=== PATIENT | male | born 1975 | race Caucasian/White ===

== ENCOUNTER 2022-05-23 19:01 | Emergency (ER) | payer OTHER, SELFPAY ==
[2022-05-23 19:02] VITALS: BP 149/95; PULSE 80; RESP 17; TEMP 36.4; O2SAT 96; BMI 29.0
--- NOTE | 2022-05-23 19:14 | RAD_ITS ---
STUDY: X-RAY - LEFT HAND, ATTENTION 2 FINGER REASON FOR EXAM: Male, 46 years old. trauma TECHNIQUE: 3 view(s) of the finger were obtained. COMPARISON: None. FINDINGS: Normal metacarpal head. Normal metacarpophalangeal joint. Normal proximal phalanx. Normal middle phalanx. Normal distal phalanx. Normal proximal interphalangeal joint. Deep laceration of the dorsal aspect of the digit at the level of the distal interphalangeal joint with the persistent flexion of the joint worrisome for disruption of the extensor tendon. RAD/Finger(s) Min 2 Views IMPRESSION: 1. No acute fracture or dislocation. 2. Deep laceration of the dorsum of the digit at the level of the distal interphalangeal joint with flexion deformity worrisome for disruption of the extensor tendon. Electronically Signed: Ruddy Amor MD at 19:25 EDT ,
[2022-05-23] MEDS: Diphth,Pertuss(Acell),Tet Vac 0.5 ML Vial IM (19:42)
[2022-05-23] MEDS: Cephalexin 250 MG Capsule 500 MG PO (19:44)
--- NOTE | 2022-05-23 19:44 | EDS_ITS ---
HPI History of Present Illness Chief Complaint: Laceration Informant: patient Narrative Narrative: 46-year-old male sustained laceration to the left index finger today. Unknown last tetanus. He notes that appears to go into the joint and that he cannot move the tip of his finger. He also notes numbness to the tip of the finger. [place]. Tetanus Immunization: Unknown [facility] Home Medications cephalexin 500 mg capsule 500 mg PO Q6 #28 CAPSULES 05/23/22 [Rx Last Taken Unknown] Allergy/AdvReac Type Severity Reaction Status Date / Time amoxicillin Allergy Chest Verified 05/23/22 19:04 tightness Social History Smoking Status: Never smoker ROS ROS ED Constitutional Constitutional ED: Denies chills or weight loss Eyes Eyes: Denies change in vision or diplopia ENT ENT ED: Denies ear pain, rhinorrhea or sore throat Cardiovascular Cardiovascular: Denies chest pain, orthopnea, palpitations or racing heartbeat Respiratory/Chest Respiratory/Chest: Denies cough, dyspnea or orthopnea Gastrointestinal Gastrointestinal: Denies abdominal pain, diarrhea, nausea or vomiting Genitourinary Genitourinary ED: Denies dysuria, hematuria or urinary frequency Musculoskeletal Musculoskeletal: Reports other Details: See history of present illness ; Denies arthralgias or myalgias Integumentary Denies abscess or rash Neurologic Neurologic: Denies headache(s) or weakness Psychiatric Psychiatric: Denies anxiety, depression, suicidal ideation or suicidal thoughts Endocrine Endocrinology: Denies polydipsia, polyphagia or polyuria Allergic/Immunologic Allergic/Immunologic ED: Denies mouth swelling, tongue swelling or urticaria EXAM Physical Exam Const Vital Signs: 05/23/22 19:02 Temperature 97.6 F L Temperature Source Temporal Pulse Rate 80 Respiratory Rate 17 Blood Pressure 149/95 H Blood Pressure Mean 113 Pulse Ox 96 Oxygen Delivery Method Room Air Positive well nourished and well developed General Appearance ED: well developed HEENT Reports normocephalic, head/scalp atraumatic and moist mucous membranes Eyes PERRL and EOMs intact bilaterally Neck no lymphadenopathy, supple and no JVD Resp normal respiratory effort and clear to auscultation bilaterally Cardio regular rate, regular rhythm and no murmurs GI normal to inspection, nondistended, normoactive bowel sounds and non-tender Palpation: soft Back/Spine no CVA tenderness and normal ROM Extremity Extremity Narrative: There is a laceration over the dorsal surface of the left index finger at the level of the DIP joint. It extends into the joint. The extensor tendon is visualized and disrupted. Bleeding is controlled. General Extremety ED: Negative for edema General Extremity: Negative for edema Neuro oriented x3 and CN's II-XII intact bilaterally Sensorium / Orientation: alert Motor Exam: strength 5/5 throughout Psych mental status grossly normal Mood & Affect: Negative for depressed or tearful Skin no rashes or lesions noted and no wounds MDM MDM MDM Narrative Medical decision making narrative: My interpretation of the x-rays do not demonstrate any acute fracture or dislocation. Wound was locally anesthetized washed with Shur-Clens irrigated with sterile saline and explored. No foreign bodies were noted. Was then closed using 7 simple interrupted Ethilon sutures. Was dressed and placed in a AlumaFoam splint. Tetanus was updated and he was given a prescription of Keflex with his first dose here in the department. He needs to follow-up with hand surgeon when he returns home to [place] Radiography Diagnostic Testing: Clinical Impression(s) from Imaging Studies Finger X-Ray 05/23/22 19:14 IMPRESSION: 1. No acute fracture or dislocation. 2. Deep laceration of the dorsum of the digit at the level of the distal interphalangeal joint with flexion deformity worrisome for disruption of the extensor tendon. Electronically Signed: Ruddy Amor MD at 19:25 EDT , Discharge Plan Triage Chief Complaint: Laceration ED Provider: Mario Alberto Starr Dx/Rx/DC Orders Clinical Impression: Extensor tendon laceration of finger with open wound Instructions: ED Tendon Laceration Prescriptions: New cephalexin [cephalexin] 500 mg capsule 500 mg PO Q6 Qty: 28 0RF Primary Care Provider: Care Physician,No Primary Referrals: Care Physician,No Primary [Primary Care Provider] - Disposition Disposition: Home, Self Care
== END 2022-05-23 19:54 | disposition home or self-care (01) ==
PROVIDERS: Emergency Provider Emergency Medicine; Visit Provider Emergency Medicine
DX: S66.321A Laceration of extensor muscle, fascia and tendon of left index finger at wrist and hand level, initial encounter (principal); X58.XXXA Exposure to other specified factors, initial encounter
CPT/HCPCS: 12001; 73140; 90715; 96372; 99283